=== PATIENT | female | born 1985 | race Caucasian/White ===

== ENCOUNTER → 2024-06-23 16:26 | Outpatient (REF) | payer BC, SELFPAY | LOC: PNTC 16:26 | PROVIDERS: ATTENDING PHYSICIAN Obstetrics & Gynecology | DX: Z36.0 Encounter for antenatal screening for chromosomal anomalies (principal); Z36.82 Encounter for antenatal screening for nuchal translucency | CPT/HCPCS: 36415; 76801; 76813 ==

== ENCOUNTER → 2024-08-18 15:24 | Outpatient (REF) | payer BC, SELFPAY | LOC: PNTC 15:24 | PROVIDERS: ATTENDING PHYSICIAN Obstetrics & Gynecology | DX: O09.529 Supervision of elderly multigravida, unspecified trimester (principal) | CPT/HCPCS: 76811 ==

== ENCOUNTER → 2024-09-30 16:28 | Outpatient (REF) | payer BC, SELFPAY | LOC: PNTC 16:28 | PROVIDERS: ATTENDING PHYSICIAN Obstetrics & Gynecology | DX: O09.519 Supervision of elderly primigravida, unspecified trimester (principal) | CPT/HCPCS: 76816 ==

== ENCOUNTER → 2024-11-11 16:23 | Outpatient (REF) | payer BC, SELFPAY | LOC: PNTC 16:23 | PROVIDERS: ATTENDING PHYSICIAN Obstetrics & Gynecology | DX: O09.529 Supervision of elderly multigravida, unspecified trimester (principal) | CPT/HCPCS: 76816 ==

== ENCOUNTER 2024-12-23 12:27 | Observation (INO) | payer BC, SELFPAY ==
[2024-12-23 12:32] VITALS: BP 121/90; BMI 29.3
== END 2024-12-23 14:21 | disposition home or self-care (01) ==
LOC: LDRP 12:27
PROVIDERS: ADMITTING PHYSICIAN Obstetrics & Gynecology
DX: O47.1 False labor at or after 37 completed weeks of gestation (principal); Z3A.39 39 weeks gestation of pregnancy; O34.83 Maternal care for other abnormalities of pelvic organs, third trimester; N94.89 Other specified conditions associated with female genital organs and menstrual cycle
CPT/HCPCS: 59899; G0378

== ENCOUNTER 2024-12-30 09:30 | Inpatient (IN) | payer BC, SELFPAY ==
[2024-12-30 09:36] VITALS: BP 125/79; BMI 29.3
[2024-12-30] MEDS: LR 1000 IV ×2 (09:45→11:06)
[2024-12-30 10:00] LABS: % Basophils 0.7 % (0-2); % Immature Granulocytes 0.3 % (0-0.5); % Monocytes 11.9 % (1.7-9.3); % Neutrophils 58.1 % (42.2-75.2); Absolute Eosinophils 0.1 10^3/uL (0-0.7); Absolute Lymphocytes 1.7 10^3/uL (1.2-3.4); Absolute Monocytes 0.7 10^3/uL (0.1-0.6); Absolute Neutrophils 3.5 10^3/uL (1.4-6.5); Hematocrit 36.8 % (37.0-47.0); Hemoglobin 12.3 g/dL (12.0-16.0); Mean Corp Hgb Conc. 33.4 g/dL (33.0-37.0); Mean Corpuscular Hgb 29.9 pg (27.0-31.0); Mean Corpuscular Volume 89.3 fL (81.0-99.0); Mean Platelet Volume 10.3 fL (7.4-10.4); Nucleated Red Blood Cells % 0 %; Platelet Count 254 10^3/uL (130-400); Red Blood Cell Count 4.12 10^6/uL (4.20-5.40); Red Cell Dist. Width 13.6 % (11.5-14.5); White Blood Cell Count 6.1 10^3/uL (4.8-10.8)
[2024-12-30] MEDS: FENTANYL/BUPIVACAINE 100 EPIDURAL (10:21)
[2024-12-30] MEDS: SUBLIMAZE 100 MCG EPIDURAL (10:21)
[2024-12-30] MEDS: MOTRIN 600 MG PO ×2 (17:38→23:46)
[2024-12-31 04:42] LABS: Hemoglobin 10.2 g/dL (12.0-16.0)
[2024-12-31 07:01] VITALS: BP 117/68
[2024-12-31] MEDS: MOTRIN 600 MG PO (07:22)
[2024-12-31] MEDS: PRENATAL PLUS 1 TABLET PO (07:22)
[2024-12-31] MEDS: FEOSOL 325 MG PO (07:23)
[2025-01-01 17:50] LABS: Syphilis/T. pallidum Ab Reflex Negative (Negative)
== END 2024-12-31 12:30 | disposition home or self-care (01) | DRG 807 ==
LOC: LDRP 09:30
PROVIDERS: ADMITTING PHYSICIAN Obstetrics & Gynecology
PROC: 10907ZC Drainage of Amniotic Fluid, Therapeutic from Products of Conception, Via Natural or Artificial Opening (ICD-10-PCS; 2024-12-30)
PROC: 10E0XZZ Delivery of Products of Conception, External Approach (ICD-10-PCS; 2024-12-30)
DX: O48.0 Post-term pregnancy (principal); Z37.0 Single live birth; Z3A.40 40 weeks gestation of pregnancy
CPT/HCPCS: 85014; 85018; 85025; 86780; 86850; 86900; 86901

== ENCOUNTER 2025-04-02 21:06 | Emergency (ER) | payer BC, SELFPAY ==
[2025-04-02 21:11] VITALS: BP 131/90
[2025-04-02 21:33] LABS: Urine Character Clear (Clear)
[2025-04-02 21:37] LABS: Hematocrit 41.2 % (37.0-47.0); Hemoglobin 13.7 g/dL (12.0-16.0); Mean Corp Hgb Conc. 33.3 g/dL (33.0-37.0); Mean Corpuscular Volume 89.6 fL (81.0-99.0); Nucleated Red Blood Cells % 0 %; Platelet Count 277 10^3/uL (130-400); Red Cell Dist. Width 12.9 % (11.5-14.5)
[2025-04-02 21:52] LABS: ALT (SGPT) 24 U/L (0-35); AST (SGOT) 24 U/L (14-36); Albumin 4.9 g/dl (3.5-5.0); Alkaline Phosphatase 69 U/L (38-126); Blood Urea Nitrogen 20 mg/dl (7-17); Calcium 9.4 mg/dl (8.4-10.2); Carbon Dioxide 23 mmol/L (22-30); Chloride 104 mmol/L (98-107); Glucose 112 mg/dl (70-99); Potassium 4.3 mmol/L (3.5-5.1); Sodium 136 mmol/L (135-145); Total Protein 8.3 g/dl (6.3-8.2); eGFR > 60.00
[2025-04-02 22:14] LABS: Urine Red Blood Cell 0-2 /HPF (0-2); Urine Squamous Cell >30 /LPF (Few)
[2025-04-03 00:29] VITALS: BP 127/86
--- NOTE | 2025-04-03 01:38 | ED.GENMED ---
History of Present Illness
General
Chief Complaint: Foreign Body Removal
Source: patient
Exam Limitations: none
Time Seen by Provider: 04/03/25 00:47
Nursing documentation reviewed up to this point in time: agreed with
History of Present Illness
History of Present Illness:
Patient to ED with complaint of diarrhea. States she removed a tampon on Saturday which she states was in place for approx 12 days. States she forgot about it until she noticed a foul odor and discharge. She was able to remove tampon on own.
States she was feeling well until today when she developed diarrhea. Denies fever/chills. Mild abd. cramping. No vomiting. COncerned for TSS.
Past History
Past History
ED Past Medical History: None
ED Past Surgical History: None
Social History
Tobacco: Non-smoker
Alcohol: None
Drug: None
Personal: Single
Living: with family
Review of Systems
Review of Systems
Allergies reviewed?: Yes
All Other Systems: ROS reviewed and negative except as documented in HPI and ROS
Constitutional: Reports no symptoms
EENT: Reports no symptoms
Respiratory: Reports no symptoms
Cardiac: Reports no symptoms
ABD/GI: Reports diarrhea
: Reports no symptoms
Musculoskeletal: Reports no symptoms
Skin: Reports no symptoms
Neurological: Reports no symptoms
Psychiatric: Reports no symptoms
Phy Exam
General Physical Exam
General Presentation: well appearing and no apparent distress
General age: appears stated age
General Skin: warm and dry
General Habitus: normal
General Mental: alert
Cardiovascular Exam
Cardiovascular Exam: regular rate/rhythm and no edema
Gastrointestinal Exam
Gastrointestinal Exam: normal bowel sounds, non tender, soft, no organomegaly, no pulsatile mass, non distended and no cva tenderness
Musculoskeletal Exam
Musculoskeletal Exam: full ROM
Skin Exam
Skin Exam: normal color, warm/dry and no rash
Psychiatric Exam
Psychiatric Exam: normal mood/affect
Course
Orders/Labs/Results
Orders:
Orders
04/02/25 21:15
CONSULT Urgent
04/02/25 21:21
Complete Blood Count/With Diff Urgent
Comprehensive Metabolic Panel Urgent
UA Reflex to Culture [Urinalysis Reflex To Culture] Urgent
Date Specimen was Collected: 04/02/25
Time Specimen was Collected: 21:17
Urine Microscopic Reflex Cult Urgent
Urine Culture Urgent
HAMZAH Source: U
Specimen Description:
Date Specimen was Collected: 04/02/25
Time Specimen was Collected: 21:17
Abnormal Lab Results
04/02/25
21:21
Absolute Lymphs (auto) 0.8 L 10^3/uL
(1.2-3.4)
Neutrophils % 78.5 H %
(42.2-75.2)
Lymphocytes % 12.5 L %
(20.5-51.1)
BUN 20 H mg/dl
(7-17)
Glucose 112 H mg/dl
(70-99)
Total Protein 8.3 H g/dl
(6.3-8.2)
Urine Ketones 2+ A
(Negative)
Leukocyte Esterase Rfl 3+ A
(Negative)
Urine WBC (Reflex) 11-15 A /HPF
(0-5)
Urine Bacteria (Reflex) Few A
(Negative)
Urine Albumin (Reflex) 1+ A
(Neg - Trace)
04/02/25 21:21
04/02/25 21:21
Vital Signs
Initial and Last Documented VS:
Initial Vital Signs
Temp Pulse Resp BP Pulse Ox
98.3 F 107 18 131/90 98
04/02/25 21:11 04/02/25 21:11 04/02/25 21:11 04/02/25 21:11 04/02/25 21:11
Last Documented Vital Signs
Temp Pulse Resp BP Pulse Ox
98.3 F 88 18 127/86 97
04/02/25 21:11 04/03/25 00:29 04/03/25 00:29 04/03/25 00:29 04/03/25 01:41
*Pulse Oximetry
SaO2: 97
Oxygen Mode of Delivery: Room air
Patient hypoxic: no
*Critical Care Note
Total Time (30-74mins, 75-104mins- exclusive of procedures): Not Applicable
Update Note
Update Note:
Patient to ED wt report of diarrhea, mild cramping since this AM. No fever/chills. SHe had a tampon in place for 12 days after forgetting it was there. SHe removed in 3 days ago and was concerned for TSS. SHe remains afebrile. WBC 6.0, renal
functions, LFT's all normal. UA neg for Uti. No skin rash. No vaginal discharge or odor. Doubtful her symptoms today are related to her tampon exposure. Discussed with her s/s to continue to observe for. No episoedes of diarrhea while in ED, no
abd. pain. WIll discharge home, close followu p with PCP. Given instructions on s/s to return to ED and she is agreeable top amy.
ED Attending Note
-
Portions of this chart may have been created with voice recognition software.� Occasional wrong word or��sound alike� substitutions may have occurred due to the inherent limitations of voice recognition software.
Discharge Plan
Departure
Patient Disposition: Home (Routine Discharge)
Date of Disposition: 04/03/25
Time of Disposition: 01:03
Patient with high blood pressure during this ER visit?: No
Condition: Good
Covid-19: Not Applicable
Discharge Problem:
Diarrhea
Instructions: Diarrhea in teens and adults
Prescriptions:
No Action
Vitamin Plus Low Iron 27 mg iron- 1 mg Tablet
1 tab PO DAILY Qty: 30 0RF
acetaminophen 325 mg Tablet
650 mg PO Q4HPRN PRN (Reason: mild pain) Qty: 0 0RF
sennosides-docusate sodium 8.6-50 mg Tablet
1 tab PO DAILYPRN PRN (Reason: constipation) Qty: 0 0RF
ferrous sulfate [FeroSul] 325 mg (65 mg iron) Tablet
325 mg PO DAILY Qty: 0 0RF
calcium carbonate [Calcium Antacid] 200 mg calcium (500 mg) Tablet,Chewable
400 mg PO Q6HPRN PRN (Reason: indigestion) Qty: 0 0RF
ibuprofen 600 mg Tablet
600 mg PO Q6HPRN PRN (Reason: moderate pain/cramps) Qty: 30 0RF
Referrals:
NONE,* [Family Provider, Internal Medicine]
Activity Restrictions/Additional Instructions:
Follow up with your family doctor. Return to the emergency department immediately for fever/chills, skin rash, abominal pain, vomiting, weakness, lethargy or for any further concerns.
Interventions
Interventions:
*Risk Screen - Suicide Last Done: 04/02/25 21:11
*General Assessment Last Done: 04/03/25 00:29
*Neglect/Abuse Screening Last Done: 04/03/25 00:29
*ED- Fall Risk Assessment Last Done: 04/03/25 00:29
*ED COVID-19 Vaccine History Last Done: 04/03/25 00:29
*Nursing Disposition Last Done: 04/03/25 01:12
Discharge Date and Time
Discharge Date/Time: 04/03/25 01:12
Print Language: [email or web address]
== END 2025-04-03 01:12 | disposition home or self-care (01) ==
LOC: EMR 21:06
PROVIDERS: EMERGENCY PHYSICIAN Emergency Medicine
DX: R19.7 Diarrhea, unspecified (principal)
CPT/HCPCS: 99283; 80053; 81003; 81015; 85025; 87086